=== PATIENT | male | born 1995 | race Caucasian/White ===

== ENCOUNTER 2019-11-01 16:13 | Emergency (ER) | payer BC, SELFPAY ==
[2019-11-01 16:14] VITALS: BP 150/79; PULSE 100; RESP 16; TEMP 36.1; O2SAT 100; BMI 23.0
--- NOTE | 2019-11-01 16:26 | ED.VISSUMM ---
- ER Visit Summary Date of Service: 11/01/19 Chief Complaint: [Dental pain] History of Present Illness: The patient is a 23 M [presents the ER with dental pain that started 2 days ago. Patient denies any trauma. Patient states that he is got of broken and carried right upper tooth. He denies any injury. Has had no fevers. Patient has no medical history.] Physical Examination: [HEENT-PERRLA, EOMI. Cranial nerves II through XII grossly intact. TMs clear. Mucous membranes moist. No adenopathy. Patient has some mild soft tissue swelling over the right upper gingiva. Patient has no evidence of facial cellulitis. Patient has a broken and carried right upper tooth #6. Cardiovascular-regular rate and rhythm without murmur or ectopy Lungs-clear to auscultation, chest wall stable without crepitus or subcu emphysema Abdomen-normoactive bowel sounds, soft, nontender, no rebound or rigidity, no peritoneal signs. Extremities-intact ?4, normal range of motion, normal pulses, atraumatic] Test Results: [None indicated Emergency Department Course and Treatment: [Patient was started on clindamycin. Patient given a few [place] for pain.] Treatment Plan: Patient will be given referral to dentist [. Patient will be treated with clindamycin and [place].] Disposition: Discharged home in stable condition [] Impression: [Dental pain secondary to early dental abscess] This note was generated with [employer] dictation software. It may contain incorrect words, spelling, and punctuation that were not noted in review of the chart prior to signing ED Disposition - Plan for ED Patient: Referrals: Care Physician,No Primary [Primary Care Provider] -
--- NOTE | 2019-11-01 16:28 | DCINST.ED_ITS ---
ED Disposition - Plan for ED Patient: Instructions: Dental Abscess Prescriptions: Clindamycin HCl [Cleocin] 300 mg PO Q6H #40 cap Prescription Printed Hydrocodone Bitart/Apap 5-325 [[place] 5MG-325MG] 1 tab PO Q4H PRN PRN 2 Days #10 tab PRN Reason: Pain Prescription Printed Referrals: Care Physician,No Primary [Primary Care Provider] - Additional Instructions: see a dentist
[2019-11-01] MEDS: Clindamycin HCl 150 MG Capsule 300 MG PO (16:47)
[2019-11-01 16:48] VITALS: BP 122/74; PULSE 68; RESP 19; O2SAT 99
--- NOTE | 2019-11-01 16:48 | ED.RN ---
PT VERY MAD STATING WE DID NOTING TO HELP HIM BECAUSE WE DIDN'T GIVE HIM PAIN MEDICINE. EXPLAINED WE ARE GIVING HIM HIS ANTIBIOTIC AND PRESCRIPTIONS FOR THAT AND PAIN MEDICINE. PT FEELS HE NEEDS PAIN MEDS NOW AND ANGRILY AMBULATED FROM ED WHILE STATING WE DIDN'T DO SHIT FOR HIM.
== END 2019-11-01 16:58 | disposition home or self-care (01) ==
LOC: ED 16:55
PROVIDERS: Emergency Provider Emergency Medicine
DX: K04.7 Periapical abscess without sinus (principal); Z72.0 Tobacco use; F12.90 Cannabis use, unspecified, uncomplicated
CPT/HCPCS: 99283